=== PATIENT | female | born 1975 | race Caucasian/White ===

== ENCOUNTER 2017-08-24 06:00 | Day surgery (SDC) | payer MEDICARE, SELFPAY ==
--- NOTE | 2017-08-19 16:43 | EKG12_ITS ---
Test Reason : PREOP Blood Pressure : / mmHG Vent. Rate : 077 BPM Atrial Rate : 077 BPM P-R Int : 152 ms QRS Dur : 092 ms QT Int : 396 ms P-R-T Axes : 047 045 012 degrees QTc Int : 448 ms Normal sinus rhythm Low voltage QRS Nonspecific T wave abnormality Borderline ECG Confirmed by JEMAL CHEN, YOSHI ([id number]), department editor NICKY OLMEDO ([id number] on 08/20/2017 3:19:30 PM Referred By: César Frias Confirmed By:YOSHI JOAQUIN MD
[2017-08-19 17:04] LABS: Hematocrit 45.2 % (37-47); Hemoglobin 14.6 g/dl (12.0-15.0); Mean Corp Hgb Conc 32.3 g/gl (32-36); Mean Corpuscular Hgb 29.2 pg (27.0-32.0); Mean Corpuscular Volume 90.4 fL (81-99); Mean Platelet Vol. 11.7 fl (6.2-12.0); Platelet Count 217 K/mm3 (150-450); RBC Distribution Width CV 15.4 % (11.6-14.6); RBC Distribution Width SD 49.9 fl (35.1-43.9); White Blood Count 13.3 K/mm3 (4.4-11.0)
[2017-08-19 17:06] LABS: Scan Indicated on CBC? Y/N NO
[2017-08-19 17:42] LABS: Anion Gap 9 (5-15); BUN 14 mg/dL (7-18); BUN/Creat Ratio 16.4 RATIO (10-20); Calcium,Total 9.1 mg/dL (8.5-10.1); Chloride 103 mmol/L (98-107); Creatinine, Serum 0.86 mg/dL (0.55-1.02); EST Glomerular Filtration Rate 77 mL/min (>60); Est Glom Filt Rate - Afr Amer 94 mL/min (>60); Glucose 148 mg/dL (74-106); Potassium 3.5 mmol/L (3.5-5.1); Sodium Level 140 mmol/L (136-145)
[2017-08-19 18:51] LABS: Hemoglobin A1c 6.6 % (4.2-6.3)
--- NOTE | 2017-08-24 | ETH_PTH ---
PATIENT: SOLEDAD MANNING LOC: [facility] [place] U#:[id number] AGE/SX: 41/F ROOM: RE08/24/[address]: Dr. Jonathan Frias MD : 1975 BED: DIS: 08/24/2017 SPEC #: [id number] RECD: 08/24/17 14:30 STATUS: MANFRED PATTI #: [id number] MARISOL: 08/24/17 00:[address]: Jonathan Frias DEPT: SURGICAL PATHOLOGY RECD BY: Javi Larose ENTERED: 08/24/17 14:31 SP TYPE: ETH TISS OTHR DR: MD Dr. Brian Davenport DO Tissues: A - Ethmoid sinus, NOS B - Ethmoid sinus, NOS Procedures: Decalcification bone/plaque Surgery Specimen Level IV HEADER OPERATION: Functional endoscopic sinus surgery PRE-OP DIAGNOSIS: Allergic rhinitis, pansinusitis TISSUE SUBMITTED: A ? Contents left sinus, B ? Contents right sinus MICROSCOPIC DIAGNOSIS A. Left sinus contents: Fragments of respiratory mucosa with chronic inflammation and bone. B. Right sinus contents: Fragments of respiratory mucosa with chronic inflammation and bone. LORI:elizabeth 08/27/17 MICROSCOPIC DESCRIPTION Slides are reviewed. GROSS DESCRIPTION A - Received in fixative is one container labeled with the patient's name and designated contents left sinus. The specimen is received in a suction bag device and consists of multiple irregular fragments of pink-solares soft tissue with possible bone fragments that in aggregate measure 5 x [address] In Waiter/Waitress portions are submitted in one cassette after decalcification. B - Received in fixative is one container labeled with the patient's name and designated contents right sinus. The specimen is received in a suction bag device and consists of multiple irregular fragments of pink-solares soft tissue with possible bone fragments that in aggregate measure 6 x 5.[address] Waiter/Waitress portions are submitted in one cassette after decalcification. / AM:elizabeth 08/24/17 TC:3 CPT: 93672 x2, 26507 x2
[2017-08-24 06:38] VITALS: BP 119/70; PULSE 79; RESP 17; TEMP 37.3; O2SAT 95; BMI 49.9
[2017-08-24] MEDS: Clindamycin 900 MG/50 ML BAG 75 MG IV (07:19)
[2017-08-24 07:56] LABS: Bedside Glucose 120 mg/dL (70-110)
--- NOTE | 2017-08-24 08:46 | PCM.DC ---
You will use the following diet at home:: No restrictions Your food should be the consistency of: Regular Discharge Activity: May not drive while taking narcotic pain medications. Call your doctor if your incision/area has: Increased Pain/ Swelling Additional Dressing/Incision Instructions:: irrigate nose 6 times daily with a lot of saline irrigation. Allergies/Adverse Reactions: Allergies cetirizine [From Zyrtec] Allergy (Verified 08/17/17 09:00) Swelling Latex, Natural Rubber Allergy (Verified 08/17/17 09:00) Fever and skin rash loratadine [From Claritin] Allergy (Verified 08/17/17 09:00) Swelling Penicillins [PCN] Adverse Reaction (Verified 08/23/17 12:07) Vomiting Medications to take at Discharge Budesonide/Formoterol 80-4.5 [Symbicort 80-4.5 Mcg Inhaler] 2 inh IH BID PRN PRN 01/03/15 Carisoprodol [Soma] 350 mg PO BID 01/03/15 Dextroamphetamine/Amphetamine [Adderall 30 mg Tablet] 30 mg PO BID 01/03/15 Fexofenadine/Pseudoephedrine [Jonelle-D 24 Hour Tablet] 1 each PO DAILY 01/03/15 Oxycodone HCl/Acetaminophen [Percocet 10-325 mg Tablet] 1 mg PO 4X/DAY 01/03/15 ProMETHAzine [Phenergan] 25 mg PO Q6H PRN PRN #20 tablet 01/03/15 Atenolol/Chlorthalidone [Atenolol-Chlorthalidone 50-25] 1 each PO DAILY 08/17/17 Gabapentin [Neurontin] 600 mg PO BIDCM 08/17/17 Insulin Glargine [Lantus (BKC)] 60 units SC QHS 08/17/17 Lamotrigine [Lamictal] 150 mg PO DAILY 08/17/17 Metformin HCl [Glucophage] 500 mg PO TIDCM 08/17/17 Omeprazole 40 mg PO BID 08/17/17 Hydrocodone/Acetaminophen [Correll 5-325 Tablet] 1 ea PO Q6H #20 tab 08/24/17 Levofloxacin [Levaquin] 750 mg PO DAILY #14 tab 08/24/17 MethylPREDNISolone DosePak [Medrol DosePak] 4 mg PO UD #1 box 08/24/17 The following prescriptions were given: Levofloxacin [Levaquin] 750 mg PO DAILY #14 tab MethylPREDNISolone DosePak [Medrol DosePak] 4 mg PO UD #1 box Hydrocodone/Acetaminophen [Correll 5-325 Tablet] 1 ea PO Q6H #20 tab Primary Care Physician: Brian Ocasio DO [Primary Care Provider] - Please Follow Up With: Harmeet Frias MD When: 1 week
--- NOTE | 2017-08-24 08:49 | PCM.OPRPT ---
Problem List (1) Chronic pansinusitis Status: Chronic Report of Operation Date of Procedure: 08/24/17 Pre-Operative Diagnosis: 1. chronic pansinusitis. 2. eustachian tube dysfunction, right and left Post-Operative Diagnosis: 1. chronic pansinusitis. 2. eustachian tube dysfunction, right and left Surgery/Procedure Performed:: 1. sinus endoscopy with total ethmoidectomy including sphenoidotomy, right and left. 2. sinus endoscopy with frontal sinus exploration with removal of tissue from frontal sinus, right and left. 3. sinus endoscopy with maxillary antrostomy with removal of contents, right and left. 4. eustachian tube dilation, right and left. 5. CT guided intraoperative image guidance Type of Anesthesia:: General Estimated Blood Loss (mL): 10cc Description of Procedure: on the day of the procedure, after appropriate informed consent was obtained, the patient was brought to the operating room and placed in supine position on the operating room table. he was placed under general endotracheal anesthesia; the endotracheal tube was secured, the eyes were lubricated. the facial recognition stickers and headset were placed for profess CT navigation. the bilateral nasal cavities were decongested with oxymetazoline-soaked pledgets. the superior attachment of the middle turbinate, inferior turbinates and uncinate processes were injected with lidocaine/epinephrine. a zero degree endoscope was placed into the left nasal cavity. the balloon sinuplasty catheter was advanced lateral to the middle turbinate and advanced into the frontal sinus. transillumination was seen and the balloon was advanced and inflated. the frontal recess was probed and tissue was removed from the frontal sinus. an uncinectomy/antrostomy was performed with a combination of a rama elevator and a lex. a back biter was used to open the antrostomy. a linda scizzor was used to remove the anterior/inferior portion of the middle turbinate. the ethmoid bulla was entered bluntly and a total ethmoidectomy was performed with a combination of a curette and a lex. this was taken superiorly to the skull base and laterally to the lamina. a stankewicz maneuver was performed and no laminar defect was noted. the natural sphenoid os was located and opened with the microdebrider. pledgets were placed and hemostasis was observed. a zero degree endoscope was placed into the right nasal cavity. the balloon sinuplasty catheter was advanced lateral to the middle turbinate and advanced into the frontal sinus. transillumination was seen and the balloon was advanced and inflated. the frontal recess was probed and tissue was removed from the frontal sinus. the uncinate process was readily visualized and an uncinectomy was performed with a rama elevator and a lex. there was no bleeding in this area. this area was avoided for the remainder of the case. a linda scizzor was used to remove the anterior/inferior portion of the middle turbinate. the ethmoid bulla was entered bluntly and a total ethmoidectomy was performed with a combination of a curette and a lex. this was taken superiorly to the skull base and laterally to the lamina. the natural sphenoid os was located and opened with the microdebrider. a stankewicz maneuver was performed and no laminar defect was noted. pledgets were placed and hemostasis was observed. the left eustachian tube was visualized with the endoscope. the acclarent AERA balloon was gently inserted into the eustachian tube until a soft stop was met. the balloon was inflated to 12atm for 2 minutes and retracted. the right eustachian tube was visualized with the endoscope. the acclarent AERA balloon was gently inserted into the eustachian tube until a soft stop was met. the balloon was inflated to 12atm for 2 minutes and retracted. at the end of the case, there was no increased resistance to retropulsion of the globes bilaterally. the pupils were equal. the patient was brought out of anesthesia and transferred to the PACU in stable condition. Grafts/Implants Used: none - Admit VTE Documentation VTE Mechan Device Prophylaxis: SCD's VTE Pharm Prophylaxis ordered?: No Reason prophylaxis not ordered:: Treatment Not Indicated
[2017-08-24 08:56] VITALS: BP 119/70; BP 128/74; PULSE 92; RESP 16; TEMP 36.6; O2SAT 94
[2017-08-24 09:15] VITALS: BP 119/70; BP 128/69; PULSE 85; RESP 16; O2SAT 93
[2017-08-24 09:16] LABS: Bedside Glucose 171 mg/dL (70-110)
[2017-08-24 09:30] VITALS: BP 119/70; BP 120/72; PULSE 88; RESP 16; O2SAT 95
[2017-08-24 09:45] VITALS: BP 119/70; PULSE 82; RESP 16; TEMP 36.7; O2SAT 97
[2017-08-24] MEDS: HYDROcodone Bitartrate/Apap 5/325 Tablet PO (10:34)
[2017-08-24 11:01] VITALS: BP 119/70
== END 2017-08-24 11:00 | disposition home or self-care (01) ==
LOC: SDC 06:01 → AC 06:01
PROVIDERS: Family Provider Preventive Medicine Occupational Medicine; PCP Preventive Medicine Occupational Medicine; Visit Provider Otolaryngology
PROC: (CPT 31257; principal; 2017-08-24 06:45)
PROC: (CPT 31257; 2017-08-24 06:45)
DX: J32.4 Chronic pansinusitis (principal); H69.83 Other specified disorders of Eustachian tube, bilateral; J30.1 Allergic rhinitis due to pollen; J30.89 Other allergic rhinitis; J30.81 Allergic rhinitis due to animal (cat) (dog) hair and dander; G47.30 Sleep apnea, unspecified; J45.909 Unspecified asthma, uncomplicated; F32.9 Major depressive disorder, single episode, unspecified; F41.9 Anxiety disorder, unspecified; K21.9 Gastro-esophageal reflux disease without esophagitis; E11.9 Type 2 diabetes mellitus without complications; F17.200 Nicotine dependence, unspecified, uncomplicated; Z79.891 Long term (current) use of opiate analgesic; Z79.51 Long term (current) use of inhaled steroids; Z79.899 Other long term (current) drug therapy; Z79.4 Long term (current) use of insulin
CPT/HCPCS: 00160; 31257; 31267; 31276; C9745; 36415; 80048; 82962; 83036; 85027; 88305; 88311; 93005; J7120; J2405